=== PATIENT | male | born 1995 | race African-American/Black ===

== ENCOUNTER 2019-09-27 19:58 | Emergency (ER) | payer OTHER ==
[~2019-09-27] VITALS: Ht 175.3 cm; Wt 77.3 kg
[2019-09-27 20:12] VITALS: Ht 175.3 cm; Wt 77.3 kg
[2019-09-27] MEDS ORDERED: AMOXICILLIN500 M1 PO (22:37)
[2019-09-27] MEDS ORDERED: IBUPROFEN800 MG PO (22:37)
[2019-09-27 23:13] VITALS: BP 120/60
== END 2019-09-27 23:13 | disposition home or self-care (01) ==
LOC: D.ER 19:58
DX: K04.7 Periapical abscess without sinus (principal); K08.89 Other specified disorders of teeth and supporting structures; Z72.0 Tobacco use